=== PATIENT | female | born 1970 | race Hispanic/Latino ===

== ENCOUNTER 2018-01-25 10:03 | Emergency (ER) | payer MEDICAID ==
[2018-01-25] MEDS ORDERED: KETOROLAC TROMETHAMINE 30MG/ML ONE (11:19)
[2018-01-25 11:21] LABS: BASOPHILS % (AUTO) 0.7 % (0.0-5.0); EOSINOPHILS % (AUTO) 1.9 % (0.0-8.0); HEMATOCRIT 27.4 % (36-48); LYMPHOCYTES % (AUTO) 23.9 % (21.0-51.0); MEAN CORPUSCULAR HEMOGLOBIN 23.5 pg (27.0-33.0); MEAN CORPUSCULAR HGB CONC 31.5 g/dL (32.0-36.0); MEAN CORPUSCULAR VOLUME 74.5 fL (79-99); MONOCYTES % (AUTO) 4.2 % (3.0-13.0); NEUTROPHILS % (AUTO) 69.3 % (40.0-77.0); PLATELET COUNT (AUTO) 264 K/uL (130-400); RED BLOOD CELL COUNT(AUTO) 3.68 MIL/uL (4.00-5.50); RED CELL DISTRIBUTION WIDTH 14.7 % (11.0-15.5); WHITE BLOOD COUNT (AUTO) 8.3 K/uL (4.8-10.8)
[2018-01-25 11:29] LABS: CREATININE 1.5 mg/dL (0.5-1.5); POTASSIUM 4.3 mmol/L (3.5-5.1)
[2018-01-25 11:34] LABS: ALBUMIN 2.6 g/dL (3.5-5.0); BILIRUBIN,TOTAL 0.2 mg/dL (0.2-1.0)
[2018-01-25] MEDS ORDERED: IOHEXOL 350 MG/ML 100ML INFUS..BTL IV ONE (13:48)
== END 2018-01-25 16:04 | disposition home or self-care (01) ==
LOC: EDH 10:03
DX: R07.89 Other chest pain (principal); M54.6 Pain in thoracic spine; E11.9 Type 2 diabetes mellitus without complications; I10 Essential (primary) hypertension; Z88.1 Allergy status to other antibiotic agents; Z98.890 Other specified postprocedural states
CPT/HCPCS: 36415; 71045; 71275; 80053; 84484; 85025; 85378; 93005; 96374; 99285; J1885; Q9967

== ENCOUNTER 2023-01-13 09:49 | Emergency (ER) | payer OTHER, MEDICARE ==
[~2023-01-13] VITALS: Ht 162.6 cm; Wt 97.1 kg
[2023-01-13 09:50] VITALS: BP 114/68; PULSE 86; RESP 16
[2023-01-13 10:56] LABS: BASOPHILS # (AUTO) 0.09 K/uL (0.00-0.20); BASOPHILS % (AUTO) 0.7 % (0.0-5.0); EOSINOPHILS # (AUTO) 0.89 K/uL (0.00-0.70); EOSINOPHILS % (AUTO) 7.3 % (0.0-8.0); HEMATOCRIT 37.2 % (36-48); IMMATURE GRANULOCYTE ABSOLUTE 0.14 K/uL (0-1); LYMPHOCYTES # (AUTO) 1.2 K/uL (1.0-4.8); LYMPHOCYTES % (AUTO) 9.9 % (21.0-51.0); MEAN CORPUSCULAR HEMOGLOBIN 28.7 pg (27.0-33.0); MEAN CORPUSCULAR HGB CONC 30.4 g/dL (32.0-36.0); MEAN CORPUSCULAR VOLUME 94.4 fL (79-99); MONOCYTES # (AUTO) 0.5 K/uL (0.1-1.0); NEUTROPHILS # (AUTO) 9.4 K/uL (1.8-7.7); PLATELET COUNT (AUTO) 208 K/uL (130-400); RED BLOOD CELL COUNT(AUTO) 3.94 MIL/uL (4.00-5.50); RED CELL DISTRIBUTION WIDTH 15.1 % (11.0-15.5); WHITE BLOOD COUNT (AUTO) 12.3 K/uL (4.8-10.8)
[2023-01-13 11:15] LABS: POTASSIUM 4.8 mmol/L (3.5-5.1)
[2023-01-13 11:38] LABS: CREATININE 10.3 mg/dL (0.5-1.5)
== END 2023-01-13 12:31 | disposition home or self-care (01) ==
LOC: EDH 09:49
DX: I12.0 Hypertensive chronic kidney disease with stage 5 chronic kidney disease or end stage renal disease (principal); E11.22 Type 2 diabetes mellitus with diabetic chronic kidney disease; N18.6 End stage renal disease; Z99.2 Dependence on renal dialysis; E78.00 Pure hypercholesterolemia, unspecified; Z88.1 Allergy status to other antibiotic agents; Z88.2 Allergy status to sulfonamides
CPT/HCPCS: 36415; 80048; 85025; 93005

== ENCOUNTER → 2023-12-12 | Outpatient (CLI) | payer MEDICARE, OTHER | END | disposition home or self-care (01) | LOC: SHCH 12:41 | PROVIDERS: ATTEND Internal Medicine | DX: R06.02 Shortness of breath (principal) | CPT/HCPCS: 93306 ==

== ENCOUNTER → 2024-01-23 | Outpatient (CLI) | payer OTHER ==
[~2024-01-23] MED LIST: IOHEXOL 350 MG/ML 100ML INFUS..BTL IV ONE; metoPROLOL tartRATE 1 MG/ML 5ML VIAL IV ONE
== END | disposition home or self-care (01) ==
LOC: RAH 07:24
PROVIDERS: ATTEND Internal Medicine
DX: I25.10 Atherosclerotic heart disease of native coronary artery without angina pectoris (principal); R07.9 Chest pain, unspecified; M47.815 Spondylosis without myelopathy or radiculopathy, thoracolumbar region
CPT/HCPCS: 75574; J3490 ×2; Q9967

== ENCOUNTER 2024-03-24 13:35 | Emergency (ER) | payer OTHER, MEDICARE ==
[~2024-03-24] VITALS: Ht 162.6 cm; Wt 99.8 kg
[2024-03-24 14:44] LABS: BASOPHILS # (AUTO) 0.09 K/uL (0.00-0.20); BASOPHILS % (AUTO) 0.8 % (0.0-5.0); EOSINOPHILS # (AUTO) 0.43 K/uL (0.00-0.70); EOSINOPHILS % (AUTO) 3.9 % (0.0-8.0); HEMATOCRIT 36.3 % (36-48); IMMATURE GRANULOCYTE ABSOLUTE 0.06 K/uL (0-1); LYMPHOCYTES # (AUTO) 1.8 K/uL (1.0-4.8); MEAN CORPUSCULAR HEMOGLOBIN 30.6 pg (27.0-33.0); MEAN CORPUSCULAR HGB CONC 31.7 g/dL (32.0-36.0); MEAN CORPUSCULAR VOLUME 96.5 fL (79-99); MONOCYTES # (AUTO) 0.5 K/uL (0.1-1.0); MONOCYTES % (AUTO) 4.2 % (3.0-13.0); NEUTROPHILS # (AUTO) 8.3 K/uL (1.8-7.7); NEUTROPHILS % (AUTO) 74.6 % (40.0-77.0); PLATELET COUNT (AUTO) 238 K/uL (130-400); RED BLOOD CELL COUNT(AUTO) 3.76 MIL/uL (4.00-5.50); RED CELL DISTRIBUTION WIDTH 13.4 % (11.0-15.5); WHITE BLOOD COUNT (AUTO) 11.1 K/uL (4.8-10.8)
[2024-03-24 14:57] LABS: CREATININE 7.2 mg/dL (0.5-1.0); POTASSIUM 4.6 mmol/L (3.5-5.1)
--- NOTE | 2024-03-24 14:58 | HMCIMG ---
Exam: NONCONTRAST CT BRAIN REASON: Headache after fall. COMPARISON: None. TECHNIQUE: Images are obtained from vertex to the skull base. The exam was performed without IV contrast. FINDINGS: There is normal appearing brain parenchyma. There are no focal mass lesions. There is is no evidence of intracranial hemorrhage or acute stroke. Ventricles and sulci appear normal. Posterior fossa and brainstem structures are unremarkable. Paranasal sinuses and remaining extracranial soft tissues appear normal as well. IMPRESSION: 1. Normal noncontrast CT brain. CT was performed with one or more following dose reduction techniques: automated exposure control, adjustment of the mA and kv according to patient's size, or use of a iterative reconstruction technique.
[2024-03-24 15:12] LABS: INR 0.96 (0.85-1.15); PROTHROMBIN TIME 10.4 SEC (9.6-11.6)
[2024-03-24 15:14] LABS: PARTIAL THROMBOPLASTIN TIME 26.9 SEC (26.3-35.5)
--- NOTE | 2024-03-24 15:19 | HMCIMG ---
CHEST 1VW REASON: Shortness of breath COMPARISON: None. FINDINGS: Lungs are clear. Heart size is borderline, accentuated by shallow breath. There is no vascular congestion. Mediastinum and bony thorax appear unremarkable, there are no visible fractures. IMPRESSION: 1. Borderline cardiomegaly accentuated by a shallow inspiration.
--- NOTE | 2024-03-24 15:19 | HMCIMG ---
HIP BILAT 5VW REASON: Shortness of breath COMPARISON: None TECHNIQUE: 5 views were obtained of the pelvis and both hips. FINDINGS: Bones of the pelvis appear intact. There are no visible fractures. SI joints appear normal as do the hip joint spaces. Oblique views of both proximal femurs show normal findings. There are no fractures. There are extensive vascular calcifications. IMPRESSION: 1. No acute finding, no fracture. 2. Extensive vascular calcification.
--- NOTE | 2024-03-24 16:18 | ERN ---
ED Note History of Present Illness Stated Complaint: FALL Chief Complaint: Mechanical Fall Dictation: Patient is a 53-year-old female with a past medical history of diabetes type 2, hypertension, hypercholesterolemia who is here post mechanical fall. Patient states she was leaving the restaurant when she fell backwards. She admits to hitting her head but says she fell on her buttocks first which helped break the fall. She denies any dizziness, chest pain, or shortness of breath. Patient uses a walker to ambulate. Patient takes aspirin daily. She receives dialysis T, Th, Sat. Allergies: Coded Allergies: insulin glargine (Unverified Allergy, Unknown, 01/13/23) levofloxacin (Unverified Allergy, Unknown, 01/13/23) sulfamethoxazole (Unverified Allergy, Unknown, 01/13/23) trimethoprim (Unverified Allergy, Unknown, 01/13/23) Past Medical History Past Medical History: Diabetes-Type II, High Cholesterol, Hypertension, Other Additional Past Medical Hx: CKD ON DIALYSIS Surgical History: Hysterectomy, Other, RAVA Surgical History Other: L TIB/ FIB, R ANKLE SX. Family History: Negative Social History: Negative, Lives with family Review of System Dictation Constitutional-no chills, weight loss/gain, fever Eyes-no injury, pain, redness and discharge ENT-no injury, pain, swelling. Cardiovascular no chest pain, palpitations, edema Respiratory no shortness of breath, cough, wheezing Abdomen/GI-no abdominal pain, diarrhea, constipation, vomiting, nausea Back no injury and pain Genitourinary no injury, bleeding and discharge Musculoskeletal/extremities, deformity. Pain of the tailbone from impact during fall. Skin no rash, discoloration Neuro- no weakness, numbness, tingling, seizures, tremors. Pain in the back of the head from impact during fall. Psych-no suicidal ideation, homicidal ideation, hallucinations, depression, anxiety, memory loss Physical Exam Dictation General-patient is awake alert and oriented . Patient uses walker to ambulate Head/neck-normocephalic, atraumatic. Tender to palpation of occipital head. Eyes-PERRL, EOMI, vision at baseline Neck-trachea midline, supple, no nuchal rigidity Cardiovascular-RRR, normal S1/S2, no MRG is, no JVD Respiratory-no distress, wheezing, rales, rhonchi Abdomen-no tenderness, guarding, soft, nondistended Skin warm, dry, normal turgor, no rash Musculoskeletal/extremities pulses equal, no cyanosis Neuro-COA X 4, GCS 15, strength 5/5, CN 2-12 intact Psych-normal behavior, mood and affect normal Results (Laboratory/Radiology) Laboratory/Radiology Laboratory Tests Test 03/24/24 14:32 White Blood Count 11.1 K/uL (4.8-10.8) H Red Blood Count 3.76 MIL/uL (4.00-5.50) L Hemoglobin 11.5 g/dL (12.0-16.0) L Hematocrit 36.3 % (36-48) Mean Corpuscular Volume 96.5 fL (79-99) Mean Corpuscular Hemoglobin 30.6 pg (27.0-33.0) Mean Corpuscular Hemoglobin Concent 31.7 g/dL (32.0-36.0) L Red Cell Distribution Width 13.4 % (11.0-15.5) Platelet Count 238 K/uL (130-400) Mean Platelet Volume 10.1 fL (7.5-10.5) Immature Granulocyte % (Auto) 0.5 % (0-1) Neutrophils (%) (Auto) 74.6 % (40.0-77.0) Lymphocytes (%) (Auto) 16.0 % (21.0-51.0) L Monocytes (%) (Auto) 4.2 % (3.0-13.0) Eosinophils (%) (Auto) 3.9 % (0.0-8.0) Basophils (%) (Auto) 0.8 % (0.0-5.0) Neutrophils # (Auto) 8.3 K/uL (1.8-7.7) H Lymphocytes # (Auto) 1.8 K/uL (1.0-4.8) Monocytes # (Auto) 0.5 K/uL (0.1-1.0) Eosinophils # (Auto) 0.43 K/uL (0.00-0.70) Basophils # (Auto) 0.09 K/uL (0.00-0.20) Absolute Immature Granulocyte (auto 0.06 K/uL (0-1) Nucleated Red Blood Cells 0.0 % (0.0-0.19) Prothrombin Time 10.4 SEC (9.6-11.6) Prothromb Time International Ratio 0.96 (0.85-1.15) Activated Partial Thromboplast Time 26.9 SEC (26.3-35.5) Sodium Level 142 mmol/L (136-145) Potassium Level 4.6 mmol/L (3.5-5.1) Chloride Level 98 mmol/L (101-111) L Carbon Dioxide Level 31 mmol/L (21-32) Blood Urea Nitrogen 63 mg/dL (7-18) H Creatinine 7.2 mg/dL (0.5-1.0) H Glomerular Filtration Rate Calc 6 mL/min (>90) Random Glucose 173 mg/dL (70-105) H Total Calcium 8.3 mg/dL (8.5-10.1) L Troponin I High Sensitivity 10 ng/L (4-50) X-RAY Comment: CXR: FINDINGS: Lungs are clear. Heart size is borderline, accentuated by shallow breath. There is no vascular congestion. Mediastinum and bony thorax appear unremarkable, there are no visible fractures. IMPRESSION: 1. Borderline cardiomegaly accentuated by a shallow inspiration. B/L hip XR: FINDINGS: Bones of the pelvis appear intact. There are no visible fractures. SI joints appear normal as do the hip joint spaces. Oblique views of both proximal femurs show normal findings. There are no fractures. There are extensive vascular calcifications. IMPRESSION: 1. No acute finding, no fracture. 2. Extensive vascular calcification. CT Scan Comment: Non-contrast head CT: FINDINGS: There is normal appearing brain parenchyma. There are no focal mass lesions. There is is no evidence of intracranial hemorrhage or acute stroke. Ventricles and sulci appear normal. Posterior fossa and brainstem structures are unremarkable. Paranasal sinuses and remaining extracranial soft tissues appear normal as well. IMPRESSION: 1. Normal noncontrast CT brain. CT was performed with one or more following dose reduction techniques: automated exposure control, adjustment of the mA and kv according to patient's size, or use of a iterative reconstruction technique. ED Course ED Course Orders Procedure Category Date Status Time 12 Lead Ekg Tracing- EKG 03/24/24 Logged Technical 14:10 Cbc With Differential LAB 03/24/24 Complete 14:10 Basic Metabolic Panel LAB 03/24/24 Complete 14:10 Pt And Ptt LAB 03/24/24 Complete 14:10 Troponin I High LAB 03/24/24 Complete Sensitivity 14:10 Chest 1vw RAD 03/24/24 Resulted 14:10 Ct Head/Brain W/O CT 03/24/24 Resulted Contrast 14:10 Hip Bilat 5vw RAD 03/24/24 Resulted 14:10 Medical Decision Making [facility] MDM INITIAL IMPRESSION Initial history and physical concerning for head injury post fall. Contributing medical problems: Patient uses walker to ambulate, high blood pressure I have reviewed the triage nursing notes and vital signs. Initial plan: Laboratory evaluation, b/l hip x-ray, CT head DATA REVIEW I have reviewed additional NN, repeat VS, and monitoring where indicated. Heart rate, blood pressure, and O2 saturation are acceptable. ED COURSE Interventions: Imaging Reassessment: Not indicated DISPOSITION Final diagnostic impression: Occipital head injury post fall I discussed my findings, clinical impression and treatment recommendations with the patient. My final plan for disposition was made based upon -mild risk of complications and potential morbidity of the patient's condition. -Discussion with the patient regarding management options. Patient will be discharged home and advised to follow up with PCP as needed. DX & DISP Disposition: Discharge Departure Impression: Primary Impression: Head injury due to trauma Additional Impression: Fall Condition: Stable Additional Instructions: Get enough sleep and mental rest to allow your brain to recover. Avoid activities that could lead to another head injury. Avoid alcohol, drugs, sedatives, and stimulants like coffee. Limit screen time and loud music before bed. Take acetaminophen for headaches. Return to activities gradually. Follow-up with PCP. FOLLOW-UP WITH PRIMARY CARE PROVIDER IN 1 TO 2 DAYS. TAKE MEDICATIONS DIRECTED HERE IN THE EMERGENCY ROOM. OKAY TO CONTINUE HOME MEDICATIONS UNLESS OTHERWISE DISCUSSED DURING YOUR VISIT IN THE EMERGENCY ROOM TODAY. RETURN TO YOUR NEAREST EMERGENCY ROOM IF SYMPTOMS WORSEN OR IF THERE IS NO IMPROVEMENT. CALL 911 IF YOU NEED IMMEDIATE ASSISTANCE. TAKE TYLENOL [id number] NEEDED AND IF NO CONTRAINDICATIONS ARE PRESENT. INCREASE ORAL HYDRATION. A WOUND CULTURE OR URINE CULTURE WAS ORDERED HERE IN THE EMERGENCY ROOM DEPARTMENT PLEASE FOLLOW-UP WITH PRIMARY CARE PROVIDER AND ADVISE THEM TO GET REPEAT PORTS FROM OUR FACILITY. IF YOU HAD ANY CHRIS WRAP/SPLINTS THAT WERE APPLIED HERE, PLEASE DO NOT REMOVE THEM UNTIL YOU SEE YOUR PRIMARY CARE OR SPECIALTY. Referrals: ZO GUERRERO MD (PCP) Time of Disposition: 16:20 I have reviewed I have reviewed the case I have examined patient MISAEL SCHNEIDER MD Mar 24, 2024 16:18
[2024-03-24 17:10] VITALS: BP 156/71; PULSE 71; RESP 20; TEMP 98.7; O2SAT 97
== END 2024-03-24 17:46 | disposition home or self-care (01) ==
LOC: EDH 13:35
DX: S09.90XA Unspecified injury of head, initial encounter (principal); E78.00 Pure hypercholesterolemia, unspecified; I12.0 Hypertensive chronic kidney disease with stage 5 chronic kidney disease or end stage renal disease; E11.22 Type 2 diabetes mellitus with diabetic chronic kidney disease; N18.6 End stage renal disease; Z99.2 Dependence on renal dialysis; Z88.1 Allergy status to other antibiotic agents; Z88.2 Allergy status to sulfonamides; Z90.710 Acquired absence of both cervix and uterus; W18.39XA Other fall on same level, initial encounter; Y93.89 Activity, other specified; Y92.89 Other specified places as the place of occurrence of the external cause; Y99.8 Other external cause status
CPT/HCPCS: 36415; 70450; 71045; 73523; 80048; 84484; 85025; 85610; 85730; 99284

== ENCOUNTER → 2024-05-02 | Outpatient (CLI) | payer OTHER, MEDICARE ==
[2024-05-02] MEDS: REGADENOSON 0.4 MG/5 ML PF SYG IVP ONE (15:51)
--- NOTE | 2024-05-07 10:34 | HMCSR ---
APPROVED REPORT Height: 5 ft 4in Weight: 220 lbs TEST INDICATIONS Chest Pain, Palpitations The imaging protocol used to acquire images was Rest Tc-99m/stress Tc-99m 1 day Consent: The procedure was explained and understood by the patient. Informerd consent was witnessed Mariana Preston RN First, low dose rest was performed then high dose stress. RESTING DATA: The resting ekg shows: NSR with T wave inversions lead III, aVF. Rest SPECT myocardial perfusion imaging was performed in supine position 98 minutes following the int ravenous injection of 12.5 mCi of Tc-99 Sestamibi. Time of rest injection: 08:40: Date: 05/02/2024 Time of rest imagin:18: Date: 05/02/2024 PHARMACOLOGIC STRESS: Pharmacologic stress test was performed by injecting regadenoson 0.4 mg IV push followed by the intra venous injection of 31.7 mCi of Tc-99 Sestamibi. Time of stress injection: 10:55: Date: 05/02/2024 Time of stress imagin:48: Date: 05/02/2024 Heart Rate at time of stress injection: 80 bpm. Gated Stress SPECT was performed 113 minutes after stress injection. The images were gated to evaluate regional wall motion and calculate left ventricular ejection fracti on. STRESS DETAILS Reason for Termination: Infusion complete Stress Symptoms: Dyspnea Max HR Achieved: 85 bpm % of APMHR Achieved: 51 Max Blood Pressure: 101/59 mmHg Stress ECG: NSR with T wave inversions lead III, aVF. Arrhythmia: No. ST Change: No. Study quality was good. Lung uptake was Normal. Artifact: No artifact LEFT VENTRICLE Size: The left ventricular size is normal. Systolic Function:The left ventricular systolic function is normal. Wall Motion: No regional wall motion abnormalities noted. The left ventricular ejection fraction was calculated to be 72%.TID = . LV PERFUSION Small size mild severity reversible perfusion defect of the apical inferolateral wall. No transient ischemic dilation of the left ventricle. RV Size/Shape Not visualized. IMPRESSION Mildly abnormal pharmacologic nuclear stress test. Global LV Function: Normal LV Perfusion Summary: Abnormal LV Viability Summary: Potentially viable myocardium Conclusion Small size mild severity reversible perfusion defect of the apical inferolateral wall. Normal LV systolic function and wall motion No ECG changes of ischemia Overall, low risk for cardiac events.
== END | disposition home or self-care (01) ==
LOC: SHCH 08:20
PROVIDERS: ATTEND Internal Medicine
DX: R00.2 Palpitations (principal); R06.00 Dyspnea, unspecified; R07.9 Chest pain, unspecified
CPT/HCPCS: 78452; 93017; J2785; A9500 ×2

== ENCOUNTER 2024-08-28 09:55 | Emergency (ER) | payer OTHER, MEDICARE ==
[~2024-08-28] VITALS: Ht 162.6 cm; Wt 104.3 kg
--- NOTE | 2024-08-28 10:13 | NUR ---
REGARDING UA: PATIENT STATES IS OLIGURIC
[2024-08-28] MEDS ORDERED: LACTATED RINGERS 1000ML 1,000 ML IV ONE (10:30)
--- NOTE | 2024-08-28 10:30 | HMCIMG ---
Exam Type: CHEST 1VW Clinical Information: cp Comparison: None Findings: The lungs are clear of infiltrates. The heart is enlarged. Bony and soft tissue structures of the chest wall are unremarkable. IMPRESSION: Cardiomegaly. Clear lungs.
[2024-08-28 10:31] LABS: BASOPHILS # (AUTO) 0.08 K/uL (0.00-0.20); EOSINOPHILS # (AUTO) 0.15 K/uL (0.00-0.70); EOSINOPHILS % (AUTO) 1.8 % (0.0-8.0); HEMATOCRIT 32.4 % (36-48); IMMATURE GRANULOCYTE ABSOLUTE 0.11 K/uL (0-1); LYMPHOCYTES # (AUTO) 0.9 K/uL (1.0-4.8); LYMPHOCYTES % (AUTO) 10.4 % (21.0-51.0); MEAN CORPUSCULAR HEMOGLOBIN 29.2 pg (27.0-33.0); MEAN CORPUSCULAR HGB CONC 30.6 g/dL (32.0-36.0); MEAN CORPUSCULAR VOLUME 95.6 fL (79-99); MONOCYTES # (AUTO) 0.4 K/uL (0.1-1.0); MONOCYTES % (AUTO) 4.3 % (3.0-13.0); NEUTROPHILS # (AUTO) 6.6 K/uL (1.8-7.7); NEUTROPHILS % (AUTO) 81.2 % (40.0-77.0); PLATELET COUNT (AUTO) 300 K/uL (130-400); RED BLOOD CELL COUNT(AUTO) 3.39 MIL/uL (4.00-5.50); WHITE BLOOD COUNT (AUTO) 8.2 K/uL (4.8-10.8)
[2024-08-28 10:44] LABS: ALBUMIN 3.3 g/dL (3.5-5.0); BILIRUBIN,TOTAL 0.7 mg/dL (0.2-1.0); TOTAL PROTEIN, SERUM 8.4 g/dL (6.0-8.3)
[2024-08-28 10:48] LABS: CREATININE 8.1 mg/dL (0.5-1.0)
--- NOTE | 2024-08-28 12:40 | ERN ---
General Chief Complaint: Abdominal Pain Stated Complaint: ABDOMINAL PAIN, VOMITING, DIARRHEA Time Seen by MD: 09:57 Source: patient History of Present Illness Initial Comments Patient is a 51-year-old female coming in to be evaluated for abdominal pain nausea and vomiting. States that this has been ongoing for several weeks. States that she has slowly been getting more weak. No fever or chills. Allergies: Coded Allergies: insulin glargine (Unverified Allergy, Unknown, 01/13/23) levofloxacin (Unverified Allergy, Unknown, 01/13/23) sulfamethoxazole (Unverified Allergy, Unknown, 01/13/23) trimethoprim (Unverified Allergy, Unknown, 01/13/23) Past Medical History Past Medical History: Diabetes-Type II, High Cholesterol, Hypertension, Renal Failure, Other Medical History Other: CKD ON DIALYSIS Past Surgical History: Hysterectomy, Other, RAVA Surgical History Other: L TIB/ FIB, R ANKLE SX. Family History Family History: Negative Social History Social History: Negative, Lives with family ROS Dictation CONSTITUTIONAL: No chills, no fever, no weakness, no diaphoresis, no malaise. HEAD/FACE: No signs of trauma. EENT: No eye pain, no blurred vision, no tearing, no double vision, no ear pain, no ear discharge, no nose pain, no nasal congestion, no throat pain, no throat swelling, no mouth pain. RESPIRATORY: No cough, no orthopnea, no SOB, no stridor, no wheezing. CARDIOVASCULAR: No chest pain, no edema, no palpitations, no syncope. GASTROINTESTINAL/ABDOMINAL: No abdominal pain, no constipation, diarrhea, nausea, no vomiting. GENITOURINARY: No abnormal discharge, no dysuria, no frequent urination, no hematuria. No complaints of pain in the genitals. MUSCULOSKELETAL: No back pain, no gout, no joint pain, no joint swelling, no muscle pain, no muscle stiffness, no neck pain. INTEGUMENTARY: No change in color, no change in hair/nails, no dryness, no lesion, no lumps, no rash. NEUROLOGICAL/PSYCH: No anxiety, not depressed, no emotional problem, no headache, no numbness, no pre-existing deficit, no history of seizures, no trem ors, no weakness. HEMATOLOGIC/LYMPHATIC: Not anemic, no history of blood clots, no apparent bleeding, no bruising, glands not swollen. All Systems Negative, Except as Noted. Physical Exam Physical Exam Dictation VITAL SIGNS: Reviewed. GENERAL APPEARANCE: Alert, oriented x3, no acute distress, obese. HEAD AND FACE: Non-traumatic. EYES: PERRL, pink conjunctivas, eyelid no trauma, anterior chamber clear. EARS: Pinnas intact and no signs of trauma or erythema. Ear canals clear and no discharge. TMs no erythema. NOSE: No discharge, no bleeding. OROPHARYNX: Mouth normal, teeth no caries, tongue pink. Pharynx clear, no erythema. Tonsils no exudates, no abscesses noted. Mucous membrane moist. NECK: Supple, non-tender, no thyromegaly, no masses, no JVD, no bruits. BREAST: Deferred. CHEST: No tenderness, no crepitus, no paradoxical movement, no retractions. LUNGS: Clear, well-ventilated, symmetric, no rales, no wheezing, no rhonchi, no stridor, good breath sounds bilaterally. HEART: Regular rate, regular rhythm, no murmur, no gallops. VASCULAR: No peripheral edema. ABDOMEN: Soft, positive bowel sounds, nondistended, no guarding, nontender, no rebound, no masses no hepatomegaly, no splenomegaly, no Naranjo's sign, no hernias. RECTAL: Deferred. GENITAL: Deferred. NEUROLOGICAL: Normal speech, gross motor function intact, gross sensory f unction intact. MUSCULOSKELETAL: Neck nontender, full range of motion, back nontender, full range of motion. EXTREMITIES: Nontender, full range of motion. SKIN: Color pink, dry, no turgor, no rash, no lacerations, no abrasions, no contusions. LYMPHATICS: Deferred. Results Laboratory and Microbiology Lab and Micro Result Laboratory Tests Test 08/28/24 10:11 White Blood Count 8.2 K/uL (4.8-10.8) Red Blood Count 3.39 MIL/uL (4.00-5.50) L Hemoglobin 9.9 g/dL (12.0-16.0) L Hematocrit 32.4 % (36-48) L Mean Corpuscular Volume 95.6 fL (79-99) Mean Corpuscular Hemoglobin 29.2 pg (27.0-33.0) Mean Corpuscular Hemoglobin Concent 30.6 g/dL (32.0-36.0) L Red Cell Distribution Width 13.0 % (11.0-15.5) Platelet Count 300 K/uL (130-400) Mean Platelet Volume 9.4 fL (7.5-10.5) Immature Granulocyte % (Auto) 1.3 % (0-1) H Neutrophils (%) (Auto) 81.2 % (40.0-77.0) H Lymphocytes (%) (Auto) 10.4 % (21.0-51.0) L Monocytes (%) (Auto) 4.3 % (3.0-13.0) Eosinophils (%) (Auto) 1.8 % (0.0-8.0) Basophils (%) (Auto) 1.0 % (0.0-5.0) Neutrophils # (Auto) 6.6 K/uL (1.8-7.7) Lymphocytes # (Auto) 0.9 K/uL (1.0-4.8) L Monocytes # (Auto) 0.4 K/uL (0.1-1.0) Eosinophils # (Auto) 0.15 K/uL (0.00-0.70) Basophils # (Auto) 0.08 K/uL (0.00-0.20) Absolute Immature Granulocyte (auto 0.11 K/uL (0-1) Nucleated Red Blood Cells 0.0 % (0.0-0.19) Red Blood Cell Morphology See comments Sodium Level 141 mmol/L (136-145) Potassium Level 4.0 mmol/L (3.5-5.1) Chloride Level 96 mmol/L (101-111) L Carbon Dioxide Level 29 mmol/L (21-32) Blood Urea Nitrogen 68 mg/dL (7-18) H Creatinine 8.1 mg/dL (0.5-1.0) *H Glomerular Filtration Rate Calc 6 mL/min (>90) Random Glucose 120 mg/dL (70-105) H Total Calcium 7.4 mg/dL (8.5-10.1) L Total Bilirubin 0.7 mg/dL (0.2-1.0) Aspartate Amino Transf (AST/SGOT) 14 U/L (10-37) Alanine Aminotransferase (ALT/SGPT) 14 U/L (12-78) Alkaline Phosphatase 269 U/L (50-136) H Total Creatine Kinase 61 U/L (21-232) Troponin I High Sensitivity 17 ng/L (4-50) Total Protein 8.4 g/dL (6.0-8.3) H Albumin 3.3 g/dL (3.5-5.0) L Lipase 23 U/L (16-77) Labs Reviewed?: Yes EKG/XRAY/US/CT/MRI EKG Comment 08/28/2024 time 10:14 a.m. Ventricular rate 80 Sinus rhythm AR [address] wave elevation or depression X-RAY Comment IMAGING REPORT Signed PATIENT: MAURILIO MARTINEZ MR#: [id number] : 1970 SEX: F AGE: 53 LOCATION: [facility] ORDER 1001 STATUS: REG ER REPORT#: [id number] SERVICE 1001 REASON: cp ORDERING PHYSICIAN: RIRI PERALTA MD PROCEDURE: CXR1VW - CHEST 1VW Exam Type: CHEST 1VW Clinical Information: cp Comparison: None Findings: The lungs are clear of infiltrates. The heart is enlarged. Bony and soft tissue structures of the chest wall are unremarkable. IMPRESSION: Cardiomegaly. Clear lungs. DICTATED BY: ROMA ZUNIGA MD DATE: 08/28/24 1028 ELECTRONICALLY SIGNED BY: ROMA ZUNIGA MD DATE: 08/28/24 1030 MDM MDM: Differential diagnosis: End-stage renal disease requiring dialysis, gastroe nteritis, chronic gastroenteritis, Rationale: Tests considered and ordered secondary to shared decision making include: Previous outside records reviewed: Old ER visits. Risk of complication and/or morbidity or mortality of patient management: None Medications-Per medication reconciliation Patient is a 53-year-old female coming in to be evaluated for diarrhea. Per patient she has been having diarrhea for several weeks. Laboratory workup within normal limits. Patient does has a history of end-stage renal disease with a anemia. Patient will be discharged in stable condition. I did advised her appropriate follow up with PCP in 1-2 days. ED Course Orders Procedure Category Date Status Time Cbc With Differential LAB 08/28/24 Complete 10:01 Comprehensive LAB 08/28/24 Complete Metabolic Panel 10:01 Troponin I High LAB 08/28/24 Complete Sensitivity 10:01 Urinalysis Profile LAB 08/28/24 Logged 10:01 12 Lead Ekg Tracing- EKG 08/28/24 Logged Technical 10:01 Lactated Ringers PHA 08/28/24 Complete 1000ml (Lactated 10:30 Creatine Kinase, Total LAB 08/28/24 Complete 10:01 Chest 1vw RAD 08/28/24 Resulted 10:01 Lipase LAB 08/28/24 Complete 10:01 Current Medications Medications (Trade) Dose Ordered Sig/Roddy Route PRN Reason Start Time Stop Time Status Last Admin Dose Admin Lactated Ringer's 1,000 ml @ 0 mls/hr ONCE ONCE IV 08/28/24 10:30 08/28/24 10:13 DC Vital Signs Date Time Temp Pulse Resp B/P (MAP) Pulse Ox O2 Delivery O2 Flow Rate FiO2 08/28/24 12:18 79 14 193/98 98 Room Air* 0 21 08/28/24 10:25 81 14 181/80 96 Room Air* 0 21 08/28/24 09:56 98.1 80 20 188/94 99 Room Air 0 DX & DISP Disposition: Discharge Departure Impression: Primary Impression: End stage renal failure on dialysis Condition: Stable Scripts Lactobacillus Acidophilus (Acidophilus Probiotic) 500 Million Cell Capsule 1 CAP PO DAILY for 30 Days, #30 CAP 0 Refills Prov: RIRI PERALTA MD 08/28/24 Pantoprazole Sodium (Protonix) 40 Mg Ectab 1 TAB PO DAILY for 30 Days, #30 TAB 0 Refills Prov: RIRI PERALTA MD 08/28/24 Additional Instructions: FOLLOW-UP WITH PRIMARY CARE PROVIDER IN 1 TO 2 DAYS. TAKE MEDICATIONS DIRECTED HERE IN THE EMERGENCY ROOM. OKAY TO CONTINUE HOME MEDICATIONS UNLESS OTHERWISE DISCUSSED DURING YOUR VISIT IN THE EMERGENCY ROOM TODAY. RETURN TO YOUR NEAREST EMERGENCY ROOM IF SYMPTOMS WORSEN OR IF THERE IS NO IMPROVEMENT. CALL 911 IF YOU NEED IMMEDIATE ASSISTANCE. TAKE TYLENOL [id number] NEEDED AND IF NO CONTRAINDICATIONS ARE PRESENT. INCREASE ORAL HYDRATION. A WOUND CULTURE OR URINE CULTURE WAS ORDERED HERE IN THE EMERGENCY ROOM DEPARTMENT PLEASE FOLLOW-UP WITH PRIMARY CARE PROVIDER AND ADVISE THEM TO GET REPEAT PORTS FROM OUR FACILITY. IF YOU HAD ANY CHRIS WRAP/SPLINTS THAT WERE APPLIED HERE, PLEASE DO NOT REMOVE THEM UNTIL YOU SEE YOUR PRIMARY CARE OR SPECIALTY. Referrals: Referrals: ZO GUERRERO MD (PCP) Time of Disposition: 12:52 RIRI PERALTA MD August 28, 2024 12:40
[2024-08-28] MEDS ORDERED: PANT40TA55 PO (12:53)
[2024-08-28] MEDS ORDERED: LACT-356 PO (12:53)
[2024-08-28 12:56] VITALS: BP 170/86; PULSE 81; RESP 14; TEMP 98.1; O2SAT 96
--- NOTE | 2024-08-28 13:29 | EKG ---
[facility] Test Date: 2024-08-28 Test Time: 10:14:42 Pat Name: MAURILIO MARTINEZ Department: ED Room: Gender: F [place] [employer] [place]: [id number] : 1970 Requested By: RIRI PERALTA Order Number: [id number] Reading MD: Bethany Muniz Measurements Intervals Arab Rate: 80 P: 22 FL: 197 QRS: 1 QRSD: 70 T: 47 QT: 451 QTc: 519 Interpretive Statements Sinus rhythm Low voltage, precordial leads Prolonged QT interval Compared to ECG 01/13/2023 11:46:58 Low QRS voltage now present Prolonged QT interval now present Electronically Signed On 08-29-2024 18:39:21 CDT by Bethany Muniz Please click the below link to view image of tracing.
== END 2024-08-28 13:54 | disposition home or self-care (01) ==
LOC: EDH 09:55
DX: I13.11 Hypertensive heart and chronic kidney disease without heart failure, with stage 5 chronic kidney disease, or end stage renal disease (principal); E11.22 Type 2 diabetes mellitus with diabetic chronic kidney disease; N18.6 End stage renal disease; E78.00 Pure hypercholesterolemia, unspecified; Z88.1 Allergy status to other antibiotic agents; Z88.2 Allergy status to sulfonamides; Z90.710 Acquired absence of both cervix and uterus; Z99.2 Dependence on renal dialysis
CPT/HCPCS: 36415; 71045; 80053; 82550; 83690; 84484; 85025; 93005; 99285